=== PATIENT | female | born 1950 | race Caucasian/White ===

== ENCOUNTER → 2018-06-18 | Outpatient (CLI) | payer MEDICARE ==
[~2018-06-18] MED LIST: ACET500 PO; ASPI325EC PO; CALCAVITD PO; CALCIUM 600 +1 EA11 PO; CITA20 PO; DIGO.125 PO; DILTIAZEM 24HR180 M2 PO; DIVA500ER PO; ELIQUIS5 MG PO; FERR325 PO; FOLI1 PO; FURO20 PO; FURO40 PO; HTN MEDS; HYDACE10B PO; HYDACE5 PO; HYDHOMSY PO; LEVSOD88 PO; LOSA50 PO; Lopressor 25 mg25 MG PO; METO25 PO; METO50ER PO; NAPR500 PO; OXYACE5T PO; OXYB5 PO; PHENY100ER PO; POTA10T PO; POTCHL20ER PO; Percocet 5-3251 EACH PO; QUET25 PO; Refresh Eye Dr1 EACH OP; SERT50 PO; THIA100 PO; VENL37.5ER PO; Vision Vitamin1 EAC1 PO; Vitamin B-121000 MCG PO
[2018-06-18 14:09] LABS: Anion Gap 7 mmol/L (6-16); Blood Urea Nitrogen 20 mg/dL (8-24); Bun/Creatinine Ratio 22.2 (12.0-20.0); CO2, Blood 27 mmol/L (21-32); Calcium, Blood 8.6 mg/dL (8.5-10.1); Chloride, Blood 108 mmol/L (98-108); Free Thyroxine 0.99 ng/dL (0.70-1.60); Glomerular Filtration Rate >60 (60-); Glucose, Blood 103 mg/dL (70-99); Potassium, Blood 4.7 mmol/L (3.5-5.5); Sodium, Blood 142 mmol/L (136-145)
== END ==
LOC: LAB SHORT 13:08 → LAB 13:08
PROVIDERS: Hospitalist
DX: E03.9 Hypothyroidism, unspecified (principal); I50.40 Unspecified combined systolic (congestive) and diastolic (congestive) heart failure
CPT/HCPCS: 80048; 84439; 84443